=== PATIENT | male | born 1985 | race Caucasian/White ===

== ENCOUNTER 2022-01-15 02:58 | Emergency (ER) | payer BC ==
[~2022-01-15] VITALS: Ht 177.8 cm; Wt 83.9 kg
[2022-01-15 03:10] VITALS: BP 125/79
[2022-01-15] MEDS ORDERED: ONDANSETRON 4 MG TAB.RAPDIS ONE (03:16)
[2022-01-15] MEDS ORDERED: ONDA4TAB5 PO (03:16)
[2022-01-15] MEDS ORDERED: ONDANSETRON 4 MG TAB.RAPDIS SL ONE (03:30)
== END 2022-01-15 03:31 | disposition home or self-care (01) ==
LOC: ER 03:05
DX: F10.129 Alcohol abuse with intoxication, unspecified (principal); R11.2 Nausea with vomiting, unspecified; Z60.2 Problems related to living alone; Y90.9 Presence of alcohol in blood, level not specified
CPT/HCPCS: 99283; Q0162